=== PATIENT | male | born 1955 | race Caucasian/White ===

== ENCOUNTER → 2017-04-08 | Outpatient (CLI) | payer OTHER | LOC: COL.LAB 09:16 | DX: Z01.89 Encounter for other specified special examinations (principal) ==

== ENCOUNTER → 2018-05-04 | Outpatient (CLI) | payer OTHER | LOC: COL.LAB 09:32 | DX: E78.2 Mixed hyperlipidemia (principal); E03.9 Hypothyroidism, unspecified; E55.9 Vitamin D deficiency, unspecified; Z82.49 Family history of ischemic heart disease and other diseases of the circulatory system; Z86.79 Personal history of other diseases of the circulatory system ==

== ENCOUNTER → 2019-03-30 | Outpatient (CLI) | payer OTHER | LOC: COL.LAB 09:05 | DX: E78.2 Mixed hyperlipidemia (principal); E03.9 Hypothyroidism, unspecified; E55.9 Vitamin D deficiency, unspecified ==

== ENCOUNTER → 2020-04-11 | Outpatient (CLI) | payer OTHER | LOC: COL.LAB | DX: E03.9 Hypothyroidism, unspecified (principal); E72.11 Homocystinuria ==

== ENCOUNTER → 2021-06-11 | Outpatient (CLI) | payer OTHER | LOC: COL.LAB 09:01 | DX: E78.2 Mixed hyperlipidemia (principal); E03.9 Hypothyroidism, unspecified; E72.11 Homocystinuria; E55.9 Vitamin D deficiency, unspecified ==